=== PATIENT | male | born 1995 | race Caucasian/White ===

== ENCOUNTER 2018-05-18 14:16 | Emergency (ER) | payer OTHER ==
[2018-05-18] MEDS: ACETAMINOPHEN 325 MG TAB PO (15:53)
[2018-05-18] MEDS: KETOROLAC 60 MG INJ IM (15:53)
[2018-05-18] MEDS: METHYLPREDNISOLONE 125 MG INJ IM (15:53)
== END 2018-05-18 16:45 | disposition home or self-care (01) ==
LOC: FTE 14:16
DX: J03.90 Acute tonsillitis, unspecified (principal)
CPT/HCPCS: 87070; 96372; 99284-25